=== PATIENT | female | born 2000 | race Asian ===

== ENCOUNTER 2021-01-12 19:08 | Emergency (ER) | payer OTHER ==
[~2021-01-12] VITALS: Ht 157.5 cm; Wt 45.0 kg
[2021-01-12 22:01] VITALS: BP 110/70
--- NOTE | 2021-01-12 22:01 | NUR ---
Patient given discharge instructions and they have confirmed that they understand the instructions. Patient ambulatory with steady gait. NAD, all questions answered appropriately, denies additional needs at this time. No personal belongings left in room after discharge.
== END 2021-01-12 22:05 | disposition home or self-care (01) ==
LOC: ED 20:00
DX: S09.8XXA Other specified injuries of head, initial encounter (principal); R51.9 Headache, unspecified; V43.62XA Car passenger injured in collision with other type car in traffic accident, initial encounter; Y93.89 Activity, other specified; Y92.410 Unspecified street and highway as the place of occurrence of the external cause; Y99.8 Other external cause status
CPT/HCPCS: 70450; 99284